=== PATIENT | female | born 1965 | race Caucasian/White ===

== ENCOUNTER 2018-01-20 17:28 | Emergency (ER) | payer SELFPAY ==
[~2018-01-20] VITALS: Ht 170.2 cm; Wt 81.6 kg
[~2018-01-20 17:28] MED LIST: ADDERALL 10 MG10 MG; AMBIEN10 MG PO; C COMPLEX500 MG PO; FERROUS SULFAT325 MG PO; LEVOTHYROXINE50 MCG PO; LEVOXYL PO; PHENERGAN SUPP25 MG PO; REQUIP0.5 MG PO
[2018-01-20] MEDS ORDERED: MORPHINE SULFATE 4 MG/ML SYR IV STA (17:38)
[2018-01-20] MEDS ORDERED: ONDANSETRON HCL INJ 2 MG/ML VIAL IV STA (17:38)
[2018-01-20] MEDS ORDERED: SODIUM CHLORIDE 0.9% 1000ML 1,000 ML IV STA (17:38)
[2018-01-20] MEDS ORDERED: MORPHINE SULFATE 2 MG/ML SYR ONE (18:03)
--- NOTE | 2018-01-20 18:21 | Diagnostic Imaging Report ---
PROCEDURE: CT ABDOMEN AND PELVIS WITHOUT CONTRAST TECHNIQUE: The abdomen and pelvis were scanned utilizing a multidetector helical scanner from the diaphragm to the lesser trochanter without contrast per stone protocol. Coronal and sagittal multiplanar reformations were obtained. Total DLP: 686.56 mGy-cm COMPARISON: CT abdomen pelvis 04/24/2014. INDICATIONS: RIGHT FLANK PAIN FINDINGS: ABSENCE OF INTRAVENOUS CONTRAST DECREASES SENSITIVITY FOR DETECTION OF FOCAL LESIONS AND VASCULAR PATHOLOGY. LOWER THORAX: Normal. HEPATOBILIARY: No focal hepatic lesions. No biliary ductal dilatation. Cholecystectomy. SPLEEN: No splenomegaly. Scattered calcified granulomas. PANCREAS: No focal masses or ductal dilatation. ADRENALS: No adrenal nodules. KIDNEYS/URETERS: No hydronephrosis, stones, or solid mass lesions. PELVIC ORGANS/BLADDER: Bladder is decompressed. Uterus and ovaries are unremarkable.. PERITONEUM / RETROPERITONEUM: No free air or fluid. LYMPH NODES: No lymphadenopathy. VESSELS: Unremarkable. GI TRACT: No distention or wall thickening. Postoperative changes of Dot-en-Y gastric bypass. Appendix is normal. BONES AND SOFT TISSUES: Stable degenerative changes in the thoracolumbar spine. Mild wedge compression deformity of L3 vertebral body. Grade 1 anterolisthesis of L4 and L5 with severe disc space narrowing are unchanged. Stable small fat containing supraumbilical hernia. IMPRESSION: 1. No renal stones or acute abdominal abnormalities. 2. Cholecystectomy and Dot-en-Y gastric bypass. Dictated by: Cristino Pulliam M.D. on 01/20/2018 at 18:22 Electronically approved by: Cristino Pulliam M.D. on 01/20/2018 at 18:22
[2018-01-20 18:35] LABS: BASOPHILS % 0.2 % (0.0-1.0); EOSINOPHILS # (AUTO) 0.1 (0.0-0.4); EOSINOPHILS % 2.7 % (0.0-6.0); HEMATOCRIT 33.3 % (34.2-44.1); HEMOGLOBIN 9.6 g/dL (12.0-16.0); LYMPHOCYTES # (AUTO) 0.7 (1.0-3.2); LYMPHOCYTES % 18.1 % (18.0-39.1); MEAN CORPUSCULAR HEMOGLOBIN 19.5 pg (28-32); MEAN CORPUSCULAR HGB CONC 28.8 g/dL (31-35); MEAN CORPUSCULAR VOLUME 67.5 fL (81-99); MONOCYTES # (AUTO) 0.5 (0.2-0.8); MONOCYTES % 12.7 % (4.4-11.3); NEUTROPHILS # (AUTO) 2.7 (2.1-6.9); NEUTROPHILS % 66.1 % (38.7-80.0); PLATELET COUNT 183 x10e3/uL (140-360); RED BLOOD COUNT 4.93 x10e6/uL (3.6-5.1)
[2018-01-20 18:47] LABS: BILIRUBIN,URINE NEGATIVE (NEGATIVE); CLARITY,URINE SL CLOUDY (CLEAR); COLOR,URINE YELLOW (YELLOW); KETONES,URINE TRACE (NEGATIVE); LEUKOCYTE ESTERASE ,URINE NEGATIVE (NEGATIVE); NITRITE,URINE NEGATIVE (NEGATIVE); PROTEIN,URINE DIPSTICK NEGATIVE (NEGATIVE); URINE UROBILINOGEN 0.2 mg/dL (0.2 - 1)
[2018-01-20 18:48] LABS: PREGNANCY TEST, URINE NEGATIVE (NEGATIVE)
[2018-01-20 18:51] LABS: ALANINE AMINOTRANSFERASE 129 IU/L (0-55); ALBUMIN 4.6 g/dL (3.5-5.0); ALBUMIN/GLOBULIN RATIO 1.2 (0.8-2.0); ALKALINE PHOSPHATASE 97 IU/L (40-150); ANION GAP 13.8 mmol/L (8-16); BLOOD UREA NITROGEN 14 mg/dL (7-26); BUN/CREATININE RATIO 14 (6-25); CALCIUM 9.6 mg/dL (8.4-10.2); CARBON DIOXIDE 25 mmol/L (22-29); CHLORIDE 103 mmol/L (98-107); CREATINE KINASE 117 IU/L (29-168); CREATININE, SERUM 1.01 mg/dL (0.57-1.11); EST GLOMERULAR FILTRATION RATE 58 ML/MIN (60-); GLUCOSE 79 mg/dL (74-118); POTASSIUM 3.8 mmol/L (3.5-5.1); SODIUM 138 mmol/L (136-145)
[2018-01-20 19:00] LABS: EPITHELIAL CELLS,URINE MODERATE /LPF; TRANSITIONAL EPI CELLS,URINE FEW; WBC,URINE (MAN) 0-5 /HPF (0-5)
[2018-01-20 19:29] VITALS: BP 153/81
== END 2018-01-20 20:00 | disposition home or self-care (01) ==
LOC: ER 17:28
DX: N39.0 Urinary tract infection, site not specified (principal); M54.5 Low back pain; R10.30 Lower abdominal pain, unspecified; E03.9 Hypothyroidism, unspecified; D64.9 Anemia, unspecified; F41.9 Anxiety disorder, unspecified; F43.10 Post-traumatic stress disorder, unspecified; G47.00 Insomnia, unspecified
CPT/HCPCS: 36415; 74176; 80053; 81001; 81025; 82550; 82553; 84484; 85025; 93005; 99284; J2270; J2405; J7030